=== PATIENT | female | born 1965 | race Caucasian/White ===

== ENCOUNTER → 2021-04-02 | Outpatient (CLI) | payer OTHER ==
[~2021-04-02] MED LIST: FEOSOL325 MG PO; KEFLEX125 MG/5 M PO; LIDOCAINE VISC 2% SOLN 15 ML UDC ONE
== END ==
LOC: WCC 14:28
PROVIDERS: ATTEND Surgery
DX: T81.89XA Other complications of procedures, not elsewhere classified, initial encounter (principal); Y83.4 Other reconstructive surgery as the cause of abnormal reaction of the patient, or of later complication, without mention of misadventure at the time of the procedure; I10 Essential (primary) hypertension; E03.9 Hypothyroidism, unspecified; F41.9 Anxiety disorder, unspecified; F33.0 Major depressive disorder, recurrent, mild; E66.8 Other obesity

== ENCOUNTER → 2021-04-09 | Outpatient (CLI) | payer OTHER ==
[~2021-04-09] MED LIST changes: -LIDOCAINE VISC 2% SOLN 15 ML UDC ONE
== END ==
LOC: WCC 14:13
PROVIDERS: ATTEND Surgery
DX: T81.89XA Other complications of procedures, not elsewhere classified, initial encounter (principal); Y83.4 Other reconstructive surgery as the cause of abnormal reaction of the patient, or of later complication, without mention of misadventure at the time of the procedure; I10 Essential (primary) hypertension; E03.9 Hypothyroidism, unspecified; F41.9 Anxiety disorder, unspecified; F33.0 Major depressive disorder, recurrent, mild; E66.8 Other obesity

== ENCOUNTER → 2021-04-12 | Outpatient (CLI) | payer OTHER | LOC: WCC 13:00 | PROVIDERS: ATTEND Surgery | DX: T81.89XA Other complications of procedures, not elsewhere classified, initial encounter (principal); Y83.4 Other reconstructive surgery as the cause of abnormal reaction of the patient, or of later complication, without mention of misadventure at the time of the procedure; I10 Essential (primary) hypertension; E03.9 Hypothyroidism, unspecified; F41.9 Anxiety disorder, unspecified; F33.0 Major depressive disorder, recurrent, mild; E66.8 Other obesity ==

== ENCOUNTER → 2021-04-19 | Outpatient (CLI) | payer OTHER | LOC: WCC 14:36 | PROVIDERS: ATTEND Surgery | DX: T81.89XA Other complications of procedures, not elsewhere classified, initial encounter (principal); Y83.4 Other reconstructive surgery as the cause of abnormal reaction of the patient, or of later complication, without mention of misadventure at the time of the procedure; I10 Essential (primary) hypertension; E03.9 Hypothyroidism, unspecified; F41.9 Anxiety disorder, unspecified; F33.0 Major depressive disorder, recurrent, mild; E66.8 Other obesity ==

== ENCOUNTER → 2021-04-23 | Outpatient (CLI) | payer OTHER | LOC: WCC 14:21 | PROVIDERS: ATTEND Surgery | DX: T81.89XA Other complications of procedures, not elsewhere classified, initial encounter (principal); Y83.4 Other reconstructive surgery as the cause of abnormal reaction of the patient, or of later complication, without mention of misadventure at the time of the procedure; I10 Essential (primary) hypertension; E03.9 Hypothyroidism, unspecified; F41.9 Anxiety disorder, unspecified; F33.0 Major depressive disorder, recurrent, mild; E66.8 Other obesity ==

== ENCOUNTER → 2021-05-01 | Outpatient (CLI) | payer OTHER | LOC: WCC 14:26 | PROVIDERS: ATTEND Surgery | DX: T81.89XA Other complications of procedures, not elsewhere classified, initial encounter (principal); Y83.4 Other reconstructive surgery as the cause of abnormal reaction of the patient, or of later complication, without mention of misadventure at the time of the procedure; I10 Essential (primary) hypertension; E03.9 Hypothyroidism, unspecified; F41.9 Anxiety disorder, unspecified; F33.0 Major depressive disorder, recurrent, mild; E66.8 Other obesity ==

== ENCOUNTER → 2021-05-04 | Outpatient (CLI) | payer OTHER | LOC: WCC 13:21 | PROVIDERS: ATTEND Surgery | DX: T81.89XA Other complications of procedures, not elsewhere classified, initial encounter (principal); Y83.4 Other reconstructive surgery as the cause of abnormal reaction of the patient, or of later complication, without mention of misadventure at the time of the procedure; I10 Essential (primary) hypertension; E03.9 Hypothyroidism, unspecified; F41.9 Anxiety disorder, unspecified; F33.0 Major depressive disorder, recurrent, mild; E66.8 Other obesity ==

== ENCOUNTER → 2021-05-07 | Outpatient (CLI) | payer OTHER | LOC: WCC 13:02 | PROVIDERS: ATTEND Surgery | DX: T81.89XA Other complications of procedures, not elsewhere classified, initial encounter (principal); Y83.4 Other reconstructive surgery as the cause of abnormal reaction of the patient, or of later complication, without mention of misadventure at the time of the procedure; I10 Essential (primary) hypertension; E03.9 Hypothyroidism, unspecified; F41.9 Anxiety disorder, unspecified; F33.0 Major depressive disorder, recurrent, mild; E66.8 Other obesity ==

== ENCOUNTER → 2021-05-15 | Outpatient (CLI) | payer OTHER | LOC: WCC 14:50 | PROVIDERS: ATTEND Surgery | DX: T81.89XA Other complications of procedures, not elsewhere classified, initial encounter (principal); Y83.4 Other reconstructive surgery as the cause of abnormal reaction of the patient, or of later complication, without mention of misadventure at the time of the procedure; I10 Essential (primary) hypertension; E03.9 Hypothyroidism, unspecified; F41.9 Anxiety disorder, unspecified; F33.0 Major depressive disorder, recurrent, mild; E66.8 Other obesity ==

== ENCOUNTER → 2021-05-21 | Outpatient (CLI) | payer OTHER | LOC: WCC 14:36 | PROVIDERS: ATTEND Surgery | DX: T81.89XA Other complications of procedures, not elsewhere classified, initial encounter (principal); Y83.4 Other reconstructive surgery as the cause of abnormal reaction of the patient, or of later complication, without mention of misadventure at the time of the procedure; I10 Essential (primary) hypertension; E03.9 Hypothyroidism, unspecified; F41.9 Anxiety disorder, unspecified; F33.0 Major depressive disorder, recurrent, mild; E66.8 Other obesity ==

== ENCOUNTER → 2021-06-07 | Outpatient (CLI) | payer OTHER | LOC: WCC 14:35 | PROVIDERS: ATTEND Surgery | DX: T81.89XA Other complications of procedures, not elsewhere classified, initial encounter (principal); Y83.4 Other reconstructive surgery as the cause of abnormal reaction of the patient, or of later complication, without mention of misadventure at the time of the procedure; I10 Essential (primary) hypertension; E03.9 Hypothyroidism, unspecified; F41.9 Anxiety disorder, unspecified; F33.0 Major depressive disorder, recurrent, mild; E66.8 Other obesity ==

== ENCOUNTER → 2021-06-14 | Outpatient (CLI) | payer OTHER | LOC: WCC 15:00 | PROVIDERS: ATTEND Surgery | DX: T81.89XA Other complications of procedures, not elsewhere classified, initial encounter (principal); Y83.4 Other reconstructive surgery as the cause of abnormal reaction of the patient, or of later complication, without mention of misadventure at the time of the procedure; I10 Essential (primary) hypertension; E03.9 Hypothyroidism, unspecified; F41.9 Anxiety disorder, unspecified; F33.0 Major depressive disorder, recurrent, mild; E66.8 Other obesity ==

== ENCOUNTER 2022-05-09 07:40 | Inpatient (IN) | payer OTHER ==
[2022-05-06 10:09] LABS: BASOPHILS # (AUTO) 0.1 (0.0-0.1); BASOPHILS % 1.2 % (0.0-1.0); EOSINOPHILS # (AUTO) 0.1 (0.0-0.4); EOSINOPHILS % 2.6 % (0.0-6.0); HEMATOCRIT 42.9 % (34.2-44.1); HEMOGLOBIN 13.4 g/dL (12.0-16.0); LYMPHOCYTES # (AUTO) 1.8 (1.0-3.2); LYMPHOCYTES % 34.6 % (18.0-39.1); MEAN CORPUSCULAR HEMOGLOBIN 31.2 pg (28-32); MEAN CORPUSCULAR HGB CONC 31.2 g/dL (31-35); MEAN CORPUSCULAR VOLUME 99.8 fL (81-99); MONOCYTES # (AUTO) 0.4 (0.2-0.8); MONOCYTES % 7.1 % (4.4-11.3); NEUTROPHILS # (AUTO) 2.8 (2.1-6.9); NEUTROPHILS % 54.3 % (38.7-80.0); PLATELET COUNT 310 x10e3/uL (140-360)
[2022-05-06 10:36] LABS: ANION GAP 11.9 mmol/L (8-16); CALCIUM 9.1 mg/dL (8.4-10.2); CREATININE, SERUM 0.83 mg/dL (0.57-1.11); POTASSIUM 3.9 mmol/L (3.5-5.1)
[~2022-05-09] VITALS: Ht 162.6 cm; Wt 114.8 kg
[~2022-05-09 07:40] MED LIST changes: +BENICAR20 MG PO; +DICLOFENAC35 MG PO; +FLUOXETINE HCL20 MG PO; +LEVOTHYROXINE112 MCG PO; +MIRTAZAPINE15 MG PO; +PREVACID30 MG PO; +TOPAMAX100 MG PO
[2022-05-09] MEDS ORDERED: BUPIVACAINE 0.5%/EPI 30 ML SDV INJ ONE (08:10)
[2022-05-09] MEDS ORDERED: ROPIVACAINE 246.25 MG, EPINEPHRINE HCL 1:1000 1ML 0.5 MG, CLONIDINE HCL 0.08 MG, KETORO... INJ ONE ×5 (08:30)
[2022-05-09] MEDS ORDERED: HYDROMORPHONE 1MG/1ML INJ ONE (08:52)
[2022-05-09] MEDS ORDERED: FAMOTIDINE 20 MG/2 ML VIAL IV ONE (08:53)
[2022-05-09] MEDS ORDERED: SUGAMMADEX SODIUM 200 MG/2 ML VIAL IV ONE ×2 (10:50→11:39)
[2022-05-09] MEDS ORDERED: ACETAMINOPHEN 1000 MG/100 ML 100 ML IV ONE (11:39)
[2022-05-09] MEDS ORDERED: LIDOCAINE HCL 2% LOCAL INJ 5 ML SDV VIAL INJ ONE (12:07)
[2022-05-09] MEDS ORDERED: SUCCINYLCHOLINE CHLORIDE 20 MG/ML 10ML VIAL ONE (12:07)
[2022-05-09] MEDS ORDERED: ONDANSETRON HCL INJ 2MG/ML 2ML 2 MG/ML VIAL ONE (12:07)
[2022-05-09] MEDS ORDERED: ROCURONIUM BROMIDE 10 MG/ML 5ML VIAL IV ONE (12:07)
[2022-05-09] MEDS ORDERED: DEXAMETHASONE SOD PHOS INJ 4 MG/ML SDV ONE (12:07)
[2022-05-09] MEDS ORDERED: SEVOFLURANE INHAL SOLN 250 ML PEN BTL ONE (12:07)
[2022-05-09] MEDS ORDERED: PROPOFOL IV EMULSION 10 MG/ML 20 ML VIAL ONE (12:07)
[2022-05-09] MEDS ORDERED: METOCLOPRAMIDE HCL 10 MG/2ML VIAL ONE (12:07)
[2022-05-09] MEDS ORDERED: EPHEDRINE SULFATE INJ 50 MG/ML VIAL ONE (12:07)
[2022-05-09] MEDS ORDERED: POVIDONE IODINE 0.05% 0.05 % ML PO ONE (12:07)
[2022-05-09] MEDS ORDERED: ACETAMINOPHEN 1000 MG/100 ML IV PRN (12:30)
[2022-05-09] MEDS ORDERED: NALOXONE HCL INJ 0.4 MG/ML AMP IV PRN (12:30)
[2022-05-09] MEDS: HYDROMORPHONE 0.2MG/ML-SOD CHL 30ML PCA SYRINGE IV PRN ×2 (12:30→21:57)
[2022-05-09] MEDS: SODIUM CHLORIDE 0.9% 1000ML 1,000 ML IV SCH ×2 (14:26→23:45)
[2022-05-09] MEDS: CEFTRIAXONE 2 GM in SODIUM CHLORIDE 0.9% 100 ML IV SCH (14:27)
[2022-05-09] MEDS ORDERED: KETAMINE HCL INJ 50 MG/ML 10 ML VIAL ONE (15:14)
[2022-05-09] MEDS ORDERED: FENTANYL CITRATE/PF 100MCG/2 ML INJ ONE (15:14)
[2022-05-09] MEDS ORDERED: MIDAZOLAM HCL 2 MG/2 ML VIAL ONE (15:14)
[2022-05-09 15:34] VITALS: BP 95/61
[2022-05-09] MEDS: CLINDAMYCIN PHOS 900MG/ 50ML 50 ML IV SCH ×2 (15:45→23:45)
[2022-05-09 16:06] VITALS: BP 95/61
[2022-05-09 16:37] VITALS: BP 95/61
[2022-05-09] MEDS: FLUOXETINE HCL 20 MG CAP PO SCH (17:13)
[2022-05-09] MEDS: ONDANSETRON HCL 4 MG ORAL DISINTEGRATING TAB PO PRN (19:42)
[2022-05-09 20:00] VITALS: BP 103/64
[2022-05-09] MEDS: CALCIUM CARBONATE 500 MG CHEWABLE TABS PO PRN (23:24)
[2022-05-09] MEDS: MIRTAZAPINE 15 MG TAB PO SCH (23:44)
[2022-05-10] VITALS: BP 95/55
[2022-05-10] MEDS: CLINDAMYCIN PHOS 900MG/ 50ML 50 ML IV SCH ×3 (06:34→20:34)
[2022-05-10 06:44] LABS: BASOPHILS # (AUTO) 0.1 (0.0-0.1); BASOPHILS % 0.5 % (0.0-1.0); HEMATOCRIT 41.3 % (34.2-44.1); HEMOGLOBIN 12.4 g/dL (12.0-16.0); LYMPHOCYTES # (AUTO) 1.3 (1.0-3.2); LYMPHOCYTES % 10.2 % (18.0-39.1); MEAN CORPUSCULAR HEMOGLOBIN 31.4 pg (28-32); MEAN CORPUSCULAR VOLUME 104.6 fL (81-99); MONOCYTES # (AUTO) 1.3 (0.2-0.8); MONOCYTES % 10.1 % (4.4-11.3); NEUTROPHILS # (AUTO) 9.8 (2.1-6.9); NEUTROPHILS % 78.7 % (38.7-80.0); PLATELET COUNT 279 x10e3/uL (140-360); RED BLOOD COUNT 3.95 x10e6/uL (3.6-5.1); RED CELL DISTRIBUTION WIDTH 14.4 % (11.7-14.4)
[2022-05-10 07:58] LABS: ANION GAP 15.8 mmol/L (8-16); CALCIUM 8.3 mg/dL (8.4-10.2); CREATININE, SERUM 2.03 mg/dL (0.57-1.11); POTASSIUM 4.8 mmol/L (3.5-5.1)
[2022-05-10] MEDS: ONDANSETRON HCL 4 MG ORAL DISINTEGRATING TAB PO PRN (08:05)
[2022-05-10] MEDS: SODIUM CHLORIDE 0.9% 1000ML 1,000 ML IV SCH ×2 (08:06→13:06)
[2022-05-10 08:18] VITALS: BP 90/54
[2022-05-10 08:50] VITALS: BP 90/54
[2022-05-10] MEDS ORDERED: OLMESARTAN 20 MG TAB PO SCH (09:00)
[2022-05-10] MEDS: FLUOXETINE HCL 20 MG CAP PO SCH ×2 (09:41→17:39)
[2022-05-10] MEDS: CALCIUM CARBONATE 500 MG CHEWABLE TABS PO PRN ×2 (09:47→20:41)
[2022-05-10] MEDS: HYDROMORPHONE 0.2MG/ML-SOD CHL 30ML PCA SYRINGE IV PRN (10:24)
[2022-05-10 11:26] VITALS: BP 90/43
[2022-05-10] MEDS: CEFTRIAXONE 2 GM in SODIUM CHLORIDE 0.9% 100 ML IV SCH (13:05)
[2022-05-10 15:28] VITALS: BP 84/48
[2022-05-10 15:39] LABS: ANION GAP 16.2 mmol/L (8-16); CALCIUM 8.4 mg/dL (8.4-10.2); CREATININE, SERUM 2.68 mg/dL (0.57-1.11); POTASSIUM 5.2 mmol/L (3.5-5.1)
[2022-05-10] MEDS ORDERED: HYDROMORPHONE 0.2MG/ML-SOD CHL 30ML PCA SYRINGE IV PRN (15:45)
[2022-05-10 18:55] LABS: CLARITY,URINE TURBID (CLEAR); COLOR,URINE YELLOW (YELLOW); KETONES,URINE TRACE (NEGATIVE); LEUKOCYTE ESTERASE ,URINE TRACE (NEGATIVE); NITRITE,URINE NEGATIVE (NEGATIVE); PROTEIN,URINE DIPSTICK 1+ (NEGATIVE); URINE UROBILINOGEN 0.2 mg/dL (0.2 - 1)
[2022-05-10 19:05] LABS: AMORPHOUS SEDIMENT,URINE MODERATE (FEW); BACTERIA,URINE MODERATE /HPF; WBC,URINE (MAN) 0-5 /HPF (0-5)
[2022-05-10 19:18] LABS: ABG HCO3 20 mmol/L (22-26); ABG PCO2 54 mmHg (35-45); ABG PH 7.18 (7.35-7.45); ABG PO2 83 mmHg (80-105)
[2022-05-10 19:19] LABS: ABG TCO2 22
[2022-05-10] MEDS: MIRTAZAPINE 15 MG TAB PO SCH (20:34)
[2022-05-10 20:47] VITALS: BP 98/51
[2022-05-10 23:13] LABS: ABG PCO2 39 mmHg (35-45); ABG PH 7.28 (7.35-7.45); ABG PO2 134 mmHg (80-105)
[2022-05-10 23:14] LABS: ANION GAP 15.1 mmol/L (8-16); CALCIUM 7.9 mg/dL (8.4-10.2); CREATININE, SERUM 2.44 mg/dL (0.57-1.11); POTASSIUM 5.1 mmol/L (3.5-5.1)
[2022-05-10 23:14] LABS: ABG HCO3 18 mmol/L (22-26); ABG TCO2 19
[2022-05-11] VITALS (7 sets, daily range): BP systolic 87–108; BP diastolic 51–66
[2022-05-11] MEDS: CALCIUM CARBONATE 500 MG CHEWABLE TABS PO PRN (04:12)
[2022-05-11] MEDS: SODIUM CHLORIDE 0.9% 1000ML 1,000 ML IV SCH ×2 (05:21→12:09)
[2022-05-11] MEDS: CLINDAMYCIN PHOS 900MG/ 50ML 50 ML IV SCH ×3 (05:25→23:21)
[2022-05-11 07:01] LABS: ANION GAP 12.8 mmol/L (8-16); CALCIUM 8.1 mg/dL (8.4-10.2); CREATININE, SERUM 1.65 mg/dL (0.57-1.11); MAGNESIUM 1.9 MG/DL (1.3-2.1); PHOSPHORUS 4.3 MG/DL (2.3-4.7); POTASSIUM 4.8 mmol/L (3.5-5.1)
[2022-05-11 07:34] LABS: BASOPHILS % 0.5 % (0.0-1.0); EOSINOPHILS # (AUTO) 0.1 (0.0-0.4); EOSINOPHILS % 1.2 % (0.0-6.0); HEMATOCRIT 34.8 % (34.2-44.1); HEMOGLOBIN 10.3 g/dL (12.0-16.0); LYMPHOCYTES % 14.3 % (18.0-39.1); MEAN CORPUSCULAR HEMOGLOBIN 30.7 pg (28-32); MEAN CORPUSCULAR HGB CONC 29.6 g/dL (31-35); MEAN CORPUSCULAR VOLUME 103.9 fL (81-99); MONOCYTES # (AUTO) 0.6 (0.2-0.8); MONOCYTES % 9.2 % (4.4-11.3); NEUTROPHILS % 74.3 % (38.7-80.0); PLATELET COUNT 254 x10e3/uL (140-360); RED BLOOD COUNT 3.35 x10e6/uL (3.6-5.1); RED CELL DISTRIBUTION WIDTH 14.6 % (11.7-14.4)
[2022-05-11] MEDS: FLUOXETINE HCL 20 MG CAP PO SCH ×2 (09:42→16:41)
[2022-05-11] MEDS: CEFTRIAXONE 2 GM in SODIUM CHLORIDE 0.9% 100 ML IV SCH (15:50)
[2022-05-11] MEDS: MIRTAZAPINE 15 MG TAB PO SCH (20:36)
[2022-05-11] MEDS: BISACODYL 10 MG SUPP PR SCH (20:37)
[2022-05-12] VITALS (7 sets, daily range): BP systolic 101–124; BP diastolic 53–71
[2022-05-12] MEDS: SODIUM CHLORIDE 0.9% 1000ML 1,000 ML IV SCH ×2 (04:45→10:30)
[2022-05-12] MEDS: HYDROCODONE/APAP 7.5MG-325MG 1 EA TAB PO PRN ×3 (05:17→20:10)
[2022-05-12] MEDS: CLINDAMYCIN PHOS 900MG/ 50ML 50 ML IV SCH ×3 (05:19→22:00)
[2022-05-12] MEDS: CALCIUM CARBONATE 500 MG CHEWABLE TABS PO PRN (05:19)
[2022-05-12 06:28] LABS: BASOPHILS % 0.9 % (0.0-1.0); EOSINOPHILS # (AUTO) 0.2 (0.0-0.4); EOSINOPHILS % 3.7 % (0.0-6.0); HEMATOCRIT 31.4 % (34.2-44.1); HEMOGLOBIN 9.8 g/dL (12.0-16.0); MEAN CORPUSCULAR HEMOGLOBIN 31.6 pg (28-32); MEAN CORPUSCULAR HGB CONC 31.2 g/dL (31-35); MEAN CORPUSCULAR VOLUME 101.3 fL (81-99); MONOCYTES # (AUTO) 0.4 (0.2-0.8); MONOCYTES % 8.3 % (4.4-11.3); NEUTROPHILS # (AUTO) 2.8 (2.1-6.9); NEUTROPHILS % 64.9 % (38.7-80.0); PLATELET COUNT 254 x10e3/uL (140-360)
[2022-05-12 06:47] LABS: ANION GAP 11.3 mmol/L (8-16); CALCIUM 8.6 mg/dL (8.4-10.2); CREATININE, SERUM 0.67 mg/dL (0.57-1.11); POTASSIUM 4.3 mmol/L (3.5-5.1)
[2022-05-12] MEDS: FLUOXETINE HCL 20 MG CAP PO SCH ×2 (09:40→16:04)
[2022-05-12] MEDS: BISACODYL 10 MG SUPP PR SCH (09:40)
[2022-05-12] MEDS: CEFTRIAXONE 2 GM in SODIUM CHLORIDE 0.9% 100 ML IV SCH (14:04)
[2022-05-12 15:34] LABS: ANION GAP 10.1 mmol/L (8-16); CALCIUM 8.7 mg/dL (8.4-10.2); CREATININE, SERUM 0.68 mg/dL (0.57-1.11); POTASSIUM 4.1 mmol/L (3.5-5.1)
[2022-05-12] MEDS: HYDROMORPHONE 1MG/1ML INJ IV PRN (16:06)
[2022-05-12] MEDS: MIRTAZAPINE 15 MG TAB PO SCH (20:09)
[2022-05-13] VITALS (9 sets, daily range): BP systolic 98–153; BP diastolic 54–87
[2022-05-13] MEDS: CLINDAMYCIN PHOS 900MG/ 50ML 50 ML IV SCH ×3 (05:21→20:10)
[2022-05-13] MEDS: HYDROCODONE/APAP 7.5MG-325MG 1 EA TAB PO PRN ×4 (05:21→20:12)
[2022-05-13 06:17] LABS: ANION GAP 9.9 mmol/L (8-16); CALCIUM 8.7 mg/dL (8.4-10.2); CREATININE, SERUM 0.63 mg/dL (0.57-1.11); POTASSIUM 3.9 mmol/L (3.5-5.1)
[2022-05-13] MEDS: PANTOPRAZOLE SOD 40 MG TABEC PO SCH (09:39)
[2022-05-13] MEDS: FLUOXETINE HCL 20 MG CAP PO SCH ×2 (09:39→16:04)
[2022-05-13] MEDS: CEFTRIAXONE 2 GM in SODIUM CHLORIDE 0.9% 100 ML IV SCH (14:26)
[2022-05-13] MEDS: HYDROMORPHONE 1MG/1ML INJ IV PRN ×2 (18:43→23:04)
[2022-05-13] MEDS: MIRTAZAPINE 15 MG TAB PO SCH (20:09)
[2022-05-14] MEDS: CLINDAMYCIN PHOS 900MG/ 50ML 50 ML IV SCH (04:12)
[2022-05-14 05:57] VITALS: BP 110/58
[2022-05-14 09:00] VITALS: BP 166/89
[2022-05-14 09:07] VITALS: BP 166/89
[2022-05-14] MEDS: FLUOXETINE HCL 20 MG CAP PO SCH (09:09)
[2022-05-14] MEDS: PANTOPRAZOLE SOD 40 MG TABEC PO SCH (09:09)
[2022-05-14] MEDS: HYDROMORPHONE 1MG/1ML INJ IV PRN ×2 (09:09→11:00)
[2022-05-14 12:00] VITALS: BP 146/86
[2022-05-14] MEDS: HYDROCODONE/APAP 7.5MG-325MG 1 EA TAB PO PRN (12:18)
[2022-05-14] MEDS ORDERED: CEFTRIAXONE 2 GM in SODIUM CHLORIDE 0.9% 100 ML IV SCH (15:00)
== END 2022-05-14 12:50 | disposition home or self-care (01) | DRG 354 ==
LOC: OR 07:40 → PACU V 12:19 → MED/SURG2 13:39
PROVIDERS: ADMIT Surgery; ATTEND Surgery
PROC: 0WQF0ZZ Repair Abdominal Wall, Open Approach (ICD-10-PCS; principal; 2022-05-09 09:15)
DX: K43.6 Other and unspecified ventral hernia with obstruction, without gangrene (principal); E87.20 Acidosis, unspecified; N17.9 Acute kidney failure, unspecified; E87.29 Other acidosis; Z68.41 Body mass index [BMI] 40.0-44.9, adult; K21.9 Gastro-esophageal reflux disease without esophagitis; K44.9 Diaphragmatic hernia without obstruction or gangrene; I95.9 Hypotension, unspecified; E66.9 Obesity, unspecified; F32.A Depression, unspecified; E87.5 Hyperkalemia; I10 Essential (primary) hypertension; D72.829 Elevated white blood cell count, unspecified; Z90.710 Acquired absence of both cervix and uterus; Z98.890 Other specified postprocedural states; Z79.1 Long term (current) use of non-steroidal anti-inflammatories (NSAID); Z79.899 Other long term (current) drug therapy; Z85.038 Personal history of other malignant neoplasm of large intestine
CPT/HCPCS: 0223U; 36415; 36600; 80048; 81001; 82805; 83735; 84100; 85025; 88302; 93005; 94799; 99252; C1781; J0171; J0330; J0690; J0696; J1100; J1170; J1885; J2001; J2250; J2405; J2765; J2795; J3010; J7030; J7050; Q0162